=== PATIENT | female | born 1990 | race African-American/Black ===

== ENCOUNTER 2019-03-03 18:15 | Emergency (ER) | payer MEDICAID ==
[~2019-03-03] VITALS: Ht 170.2 cm; Wt 91.0 kg
[2019-03-03 18:23] VITALS: BP 103/60
== END 2019-03-03 20:05 | disposition left against medical advice (07) ==
LOC: ER 18:15
DX: R10.31 Right lower quadrant pain (principal); R11.0 Nausea; Z53.21 Procedure and treatment not carried out due to patient leaving prior to being seen by health care provider